=== PATIENT | female | born 1960 | race Caucasian/White ===

== ENCOUNTER → 2016-06-19 | Outpatient (CLI) | payer MEDICARE, MEDICAID ==
[~2016-06-19] MED LIST: ADVIL LIQUI-GE200 MG PO; ANTI-DIARRHEAL2 MG PO; BECONASE AQ NA42 MCG NAS; CALCIUM 600MG+D1 TAB PO; CALCIUM CITRATE1 TAB PO; CALCIUM600 M1 PO; CITRACAL PLUS1 TAB PO; FLEXERIL 1010 MG/TAB PO; HUMALOG100 U/ML SC; IMURAN 50MG TAB50 MG PO; K-DUR 10 MEQ T10 MEQ PO; KLONOPIN 1MG1 MG PO; LANTUS100 U/ML SC; LUNESTA2 MG PO; LYRICA 100MG C100 M1 PO; MAGNESIUM250 M1 PO; MAGNESIUM500 MG PO; MAXALT MLT10 MG/TAB PO; NEURONTIN300 MG/CAP PO; PREVACID 15MG15 M1 PO; PREVACID 30MG30 M1 PO; PRINIVIL5 MG PO; PROAIR HFA0.09 MG/AC IH; REPREXAIN PO; RT ADVAIR 128 DISKUS IH; SINGULAIR 110 MG/TAB PO; VICODIN 5/5001 UDTAB PO; VICODIN HP 10 PO; VITAMIN B-1000 MCG/T PO; XANAX 1MG1 MG PO; ZESTRIL 10MG10 MG PO; ZOFRAN 4MG T4 MG/TAB PO; ZYRTEC 10MG10 MG PO
== END ==
LOC: BHSO 15:26
DX: F33.1 Major depressive disorder, recurrent, moderate (principal)

== ENCOUNTER → 2016-08-06 | Outpatient (CLI) | payer MEDICARE, MEDICAID | LOC: BHSO 14:42 | DX: F41.1 Generalized anxiety disorder (principal) ==

== ENCOUNTER → 2016-09-26 | Outpatient (CLI) | payer MEDICARE, MEDICAID | LOC: BHSO 14:21 | DX: F41.1 Generalized anxiety disorder (principal) ==

== ENCOUNTER → 2016-11-25 | Outpatient (CLI) | payer MEDICARE, MEDICAID | LOC: BHSO 15:40 | DX: F31.73 Bipolar disorder, in partial remission, most recent episode manic (principal) ==

== ENCOUNTER → 2017-01-01 | Outpatient (CLI) | payer MEDICARE, MEDICAID ==
[2017-01-01 13:55] LABS: BASO % 0.5 % (0.0-2.0); EOS # 0.1 (0.0-0.7); EOS % 1.2 % (0-4.0); GRAN # 2.4 (1.4-6.5); GRAN % 58.1 % (42.2-75.2); HEMATOCRIT 40.7 % (37.0-47.0); HEMOGLOBIN 13.8 g/dl (12.5-16.0); LYMPH # 1.2 (1.2-3.4); LYMPH % 30.1 % (20.0-51.0); MEAN CELL VOLUME 92 fl (80.0-100.0); MEAN CORPUSCULAR HEMOGLOBIN 31 pg (27.0-31.0); MEAN CORPUSCULAR HGB CONC 34 g/dl (33.0-37.0); MEAN PLATELET VOLUME 9.7 fl (7.4-10.4); MONO # 0.4 (0.1-0.6); MONO % 9.6 % (1.7-9.3); PLATELET COUNT 97 K/mm3 (130-400); RED BLOOD COUNT 4.43 M/mm3 (4.10-5.30); REDCELL DISTRIBUTION WIDTH-CV 13.4 % (11.5-14.5); WHITE BLOOD COUNT 4.1 K/mm3 (4.8-10.8)
[2017-01-01 13:59] LABS: PROTHROMBIN TIME 11.2 SECONDS (9.7-12.8)
[2017-01-01 14:06] LABS: ADJUSTED CALCIUM 9.4 mg/dL (8.4-10.2); ALBUMIN 4.3 gm/dL (3.5-5.0); BILIRUBIN,TOTAL 0.7 mg/dL (0.0-1.0); CALCIUM 9.6 mg/dL (8.4-10.2); CREATININE, serum 0.56 mg/dL (0.52-1.25); POTASSIUM 4.3 mmol/L (3.4-5.0); TOTAL PROTEIN 7.3 gm/dL (6.4-8.2)
== END ==
LOC: COL.RAD 13:18
PROVIDERS: Physician Assistant
DX: K76.89 Other specified diseases of liver (principal); B25.9 Cytomegaloviral disease, unspecified

== ENCOUNTER → 2017-01-15 | Outpatient (CLI) | payer MEDICARE, MEDICAID | LOC: BHSO 15:52 | DX: F33.1 Major depressive disorder, recurrent, moderate (principal) ==

== ENCOUNTER → 2017-03-04 | Outpatient (CLI) | payer MEDICARE, MEDICAID ==
[2017-03-04 23:35] LABS: CREATININE URINE 12 mg/dL (())
== END ==
LOC: COL.LAB 15:32
PROVIDERS: Family Medicine
DX: E11.9 Type 2 diabetes mellitus without complications (principal)

== ENCOUNTER → 2017-03-05 | Outpatient (CLI) | payer MEDICARE, MEDICAID | LOC: BHSO 14:12 | DX: F31.73 Bipolar disorder, in partial remission, most recent episode manic (principal) ==

== ENCOUNTER → 2017-04-23 | Outpatient (CLI) | payer MEDICARE, MEDICAID | LOC: BHSO 14:02 | DX: F31.73 Bipolar disorder, in partial remission, most recent episode manic (principal) ==

== ENCOUNTER → 2017-06-11 | Outpatient (CLI) | payer MEDICARE, MEDICAID | LOC: BHSO 15:24 | DX: F31.73 Bipolar disorder, in partial remission, most recent episode manic (principal) | CPT/HCPCS: G0463 ==

== ENCOUNTER → 2017-06-29 | Outpatient (CLI) | payer MEDICARE, MEDICAID | LOC: COL.LAB 16:32 | DX: E53.8 Deficiency of other specified B group vitamins (principal); E11.9 Type 2 diabetes mellitus without complications ==

== ENCOUNTER → 2017-08-05 | Outpatient (CLI) | payer MEDICARE, MEDICAID | LOC: BHSO 14:44 | DX: F31.81 Bipolar II disorder (principal) | CPT/HCPCS: G0463 ==

== ENCOUNTER → 2017-11-05 | Outpatient (CLI) | payer MEDICARE, MEDICAID | LOC: BHSO 15:07 | DX: F31.81 Bipolar II disorder (principal) | CPT/HCPCS: G0463 ==

== ENCOUNTER → 2018-03-03 | Outpatient (CLI) | payer MEDICARE, MEDICAID | LOC: BHSO 14:13 | DX: F41.1 Generalized anxiety disorder (principal) | CPT/HCPCS: G0463 ==

== ENCOUNTER → 2018-07-15 | Outpatient (CLI) | payer MEDICARE, MEDICAID | LOC: BHSO 15:09 | DX: F31.81 Bipolar II disorder (principal) | CPT/HCPCS: G0463 ==

== ENCOUNTER → 2018-10-19 | Outpatient (CLI) | payer MEDICARE, MEDICAID | LOC: ZCOL.LAB 19:23 | DX: E53.8 Deficiency of other specified B group vitamins (principal); E55.9 Vitamin D deficiency, unspecified ==

== ENCOUNTER → 2019-01-19 | Outpatient (CLI) | payer MEDICARE, MEDICAID | LOC: BHSO 14:12 | DX: F31.81 Bipolar II disorder (principal) | CPT/HCPCS: G0463 ==

== ENCOUNTER → 2019-02-18 | Outpatient (CLI) | payer MEDICARE, MEDICAID | LOC: ZCOL.LAB 16:40 | DX: L02.31 Cutaneous abscess of buttock (principal) ==

== ENCOUNTER → 2019-04-21 | Outpatient (CLI) | payer MEDICARE, MEDICAID ==
[2019-04-21 17:02] LABS: CALCIUM 9.3 mg/dL (8.4-10.2); CREATININE, serum 0.53 (0.52-1.25); POTASSIUM 3.4 mmol/L (3.4-5.0)
[2019-04-21 23:14] LABS: CREATININE OTHER SOURCE 18 mg/dL (()); URINE MICROALBUMIN <0.5 mg/dL (0.0-1.7)
== END ==
LOC: ZCOL.LAB 16:34
PROVIDERS: Family Medicine
DX: E11.9 Type 2 diabetes mellitus without complications (principal)

== ENCOUNTER → 2019-09-30 | Outpatient (CLI) | payer MEDICARE, MEDICAID | LOC: BHSO 08:40 | DX: F31.81 Bipolar II disorder (principal) ==

== ENCOUNTER 2022-02-02 18:50 | Emergency (ER) | payer MEDICARE, MEDICAID ==
[~2022-02-02] VITALS: Ht 162.6 cm; Wt 100.0 kg
[~2022-02-02 18:50] MED LIST changes: +CEPHALEXIN500 M1 PO
[2022-02-02 18:52] VITALS: TEMP 97.1
[2022-02-02 19:55] VITALS: BP 154/80; PULSE 76
== END 2022-02-02 20:37 | disposition home or self-care (01) ==
LOC: COL.ER 18:50
DX: M25.552 Pain in left hip (principal)
CPT/HCPCS: J2270

== ENCOUNTER → 2022-03-12 | Outpatient (CLI) | payer MEDICARE, MEDICAID ==
[~2022-03-12] MED LIST changes: +ADVIL PM 38 MG-1 TAB PO; +BACTROBAN15 GM TOP; +CITRACAL + D CA1 TAB PO; +DIFLUCAN150 MG PO; +ENTOCORT EC3 MG PO; +ERGOCALCIFER50000 IU PO; +IMODIUM 2MG CAPS2 MG PO; +LANTUS SOLOS100 U/ML SQ; +LIDODERM 5% PATC1 EA TP; +LOPROX CR 15GM TOP; +LOTRIMIN AF1% TOP; +LOVENOX 4040 MG/0.4 SQ; +NORCO 325 MG-101 TAB PO; +NYSTATIN CREAM15 GM TP; +PHARMASSURE MA500 MG PO; +PROVENTIL0.09 MG/A1 IH; +SENEXON-S 50-81 EACH PO; +ULTRAM 50MG TAB50 MG PO; +XANAX 0.5MG0.5 MG PO
[2022-03-12 15:59] LABS: BASO % 0.2 % (0.0-2.0); EOS % 0.7 % (0.0-4.0); GRAN # 3.3 K/mm3 (1.4-6.5); GRAN % 76.1 % (42.2-75.2); LYMPH # 0.5 K/mm3 (1.2-3.4); LYMPH % 12.4 % (20.0-51.0); MEAN CELL VOLUME 98 fl (80.0-100.0); MEAN CORPUSCULAR HGB CONC 32 g/dl (33.0-37.0); MEAN PLATELET VOLUME 10.5 fl (7.4-10.4); MONO # 0.4 K/mm3 (0.1-0.6); MONO % 9.7 % (1.7-9.3); PLATELET COUNT 125 K/mm3 (130-400); RED BLOOD COUNT 2.55 M/mm3 (4.10-5.30); REDCELL DISTRIBUTION WIDTH-CV 14.1 % (11.5-14.5)
[2022-03-12 16:03] LABS: MEAN CORPUSCULAR HEMOGLOBIN 31 pg (27-31)
== END ==
LOC: COL.LAB 15:36
PROVIDERS: Family Medicine
DX: D62 Acute posthemorrhagic anemia (principal)

== ENCOUNTER → 2022-03-15 | Outpatient (CLI) | payer MEDICARE, MEDICAID | LOC: COL.LAB 14:08 | DX: L03.115 Cellulitis of right lower limb (principal); L03.116 Cellulitis of left lower limb ==